=== PATIENT | female | born 1990 | race Caucasian/White ===

== ENCOUNTER 2018-04-20 06:56 | Emergency (ER) | payer SELFPAY ==
[~2018-04-20] VITALS: Ht 160 cm; Wt 52.2 kg
[2018-04-20 07:01] VITALS: BP 115/73; Ht 160 cm; Wt 52.2 kg
== END 2018-04-20 08:34 | disposition home or self-care (01) ==
LOC: ED 06:56
DX: R51 Headache (principal); Z97.5 Presence of (intrauterine) contraceptive device; Z88.2 Allergy status to sulfonamides

== ENCOUNTER 2018-11-02 08:55 | Emergency (ER) | payer OTHER ==
[~2018-11-02] VITALS: Ht 160 cm; Wt 54.4 kg
[2018-11-02 09:01] VITALS: Ht 160 cm; Wt 54.4 kg
[2018-11-02 09:26] LABS: BASOPHIL % 0.3 % (0-2); PLATELET COUNT 190 x10^3mcL (130-400); RED CELL DISTRIBUTION WIDTH 12.6 % (11.5-14.5)
[2018-11-02 09:48] LABS: CALCIUM 8.9 mg/dL (8.5-10.1); CARBON DIOXIDE 21.9 mmol/L (21-32); CHLORIDE SERUM 96 mmol/L (98-107); GFR1 > 60 mL/min; GLUCOSE SERUM 215 mg/dL (74-106); POTASSIUM SERUM 3.3 mmol/L (3.5-5.1); SODIUM SERUM 130 mmol/L (136-145)
[2018-11-02 09:52] LABS: ALBUMIN 4.2 g/dL (3.4-5.0); ALKALINE PHOSPHATASE 84 U/L (46-116); ALT/SGPT 71 U/L (14-59); AST/SGOT 89 U/L (15-37); BILIRUBIN TOTAL 0.6 mg/dL (0.20-1.00); TOTAL PROTEIN, SERUM 8.1 g/dL (6.4-8.2)
[2018-11-02 11:23] LABS: UA SPECIFIC GRAVITY <=1.005 (1.005-1.035); microscopic required? YES; urine erythrocyte 2+ (NEGATIVE)
[2018-11-02 11:30] LABS: AMPHETAMINE QUAL UR NONE DETECTED (See below)
[2018-11-02 16:44] VITALS: BP 106/71
== END 2018-11-02 16:44 ==
LOC: ED 08:55
PROVIDERS: Specialist
DX: T14.91XA Suicide attempt, initial encounter (principal); S10.91XA Abrasion of unspecified part of neck, initial encounter; F32.9 Major depressive disorder, single episode, unspecified; E87.1 Hypo-osmolality and hyponatremia; E87.6 Hypokalemia; R73.9 Hyperglycemia, unspecified; Z88.2 Allergy status to sulfonamides; X83.8XXA Intentional self-harm by other specified means, initial encounter; Y93.89 Activity, other specified; Y92.89 Other specified places as the place of occurrence of the external cause; Y99.8 Other external cause status
CPT/HCPCS: G0480; J7030; Q9967